=== PATIENT | male | born 1980 | race Caucasian/White ===

== ENCOUNTER 2024-12-19 07:33 | Day surgery (SDC) | payer BC, OTHER ==
[~2024-12-19 07:33] MED LIST: Lidocaine 2% 5 ML SDV ONE; Sodium Chloride 0.9% 10 ML Syringe FLUSH PRN; Sodium Chloride 0.9% 2.5 ML Syringe FLUSH PRN; Sodium Chloride 0.9% 20 ML SDV IV PRN; propofoL 500 MG/50 ML 50 ML ONE
[2024-12-19] MEDS: Lactated Ringers 1,000 ML IV SCH (07:55)
== END 2024-12-19 10:50 | disposition home or self-care (01) ==
LOC: MW.SDS 07:33
PROVIDERS: ATTEND Surgery
DX: Z12.11 Encounter for screening for malignant neoplasm of colon (principal); K29.50 Unspecified chronic gastritis without bleeding; K20.0 Eosinophilic esophagitis; K22.89 Other specified disease of esophagus; K21.9 Gastro-esophageal reflux disease without esophagitis; K63.5 Polyp of colon; K62.1 Rectal polyp; K57.30 Diverticulosis of large intestine without perforation or abscess without bleeding; J45.909 Unspecified asthma, uncomplicated; I10 Essential (primary) hypertension; Z86.16 Personal history of COVID-19; Z79.899 Other long term (current) drug therapy; Z87.891 Personal history of nicotine dependence
CPT/HCPCS: 43239; 45380; J2003; J2704; J7120; 00813